=== PATIENT | female | born 1960 | race Caucasian/White ===

== ENCOUNTER → 2017-02-15 | Outpatient (REF) | payer OTHER | LOC: M SFHCWAGY 11:22 | PROVIDERS: ATTEND Nurse Practitioner Women's Health | DX: Z12.4 Encounter for screening for malignant neoplasm of cervix (principal); Z12.31 Encounter for screening mammogram for malignant neoplasm of breast ==

== ENCOUNTER → 2017-02-15 | Outpatient (CLI) | payer OTHER ==
--- NOTE | 2017-02-15 12:03 | REPMRS ---
Patient History The patient states she had a clinical breast exam in 01/2017. No known family history of cancer. Taking unspecified hormones for 6 years. Digital Woman Screen Mammo: February 15, 2017 - Exam #: [id number] Bilateral CC and MLO view(s) were taken. Technologist: Nicole Berkowitz, Technologist Prior study comparison: February 10, 2013, digital woman screen mammo performed at [facility]. February 10, 2013, digital bilateral screening mammo performed at [facility]. July 16, 2008, bilateral screening mammogram, performed at [facility]. FINDINGS: There are scattered fibroglandular densities. There has been no change in the appearance of the mammogram from the prior studies. There is a mild amount of scattered fibroglandular density which is fairly symmetric. There is no interval development of dominant mass, architectural distortion, or clustered microcalcification suggestive of malignancy. ASSESSMENT: BI-RADS/ACR category 1 mammogram. Negative. Recommendation Routine screening mammogram in 1 year (for women over age 40). This mammogram was interpreted with the aid of an FDA-approved computer-aided dectection system. Electronically Signed By: Roni Hercules MD 02/15/17 1399
== END ==
LOC: M WHC 11:08
PROVIDERS: ATTEND Nurse Practitioner Women's Health
DX: Z12.31 Encounter for screening mammogram for malignant neoplasm of breast (principal)

== ENCOUNTER → 2017-04-26 | Outpatient (CLI) | payer OTHER ==
--- NOTE | 2017-04-26 07:04 | REP ---
Clinical: Right upper quadrant abdominal pain. Technique: Irene scale ultrasound using curved array transducer. Findings: The liver demonstrates diffuse fatty infiltration without focal hepatic lesion. Visualized portions of the pancreas are unremarkable but limited due to interposed bowel gas. The gallbladder is normal without gallstones, wall thickening or pericholecystic fluid. No biliary ductal dilatation is appreciated, and the common bile duct measures 5.1 mm diameter. The right kidney is normal in reniform shape without hydronephrosis and measures 9.9 x 6.3 x 5.8 cm. Renovascular calcifications are suggested. No ascites. Visualized portions of the abdominal aorta normal. Impression: Essentially normal right upper quadrant ultrasound. Fatty infiltration to the liver. Renovascular calcifications suggested. Signed by Ronnie Bruno MD 04/26/2017 06:56 A
== END ==
LOC: M RAD 06:19
PROVIDERS: ATTEND Internal Medicine
DX: R10.9 Unspecified abdominal pain (principal)

== ENCOUNTER → 2018-04-24 | Outpatient (CLI) | payer OTHER | LOC: M WHC 14:53 | DX: Z12.31 Encounter for screening mammogram for malignant neoplasm of breast (principal) | CPT/HCPCS: 77067 ==

== ENCOUNTER → 2018-04-24 | Outpatient (REF) | payer OTHER | LOC: M SFHCWAGY 15:14 | DX: Z12.4 Encounter for screening for malignant neoplasm of cervix (principal) ==

== ENCOUNTER → 2018-08-15 | Outpatient (CLI) | payer BC | LOC: M PLARAD 08:51 | DX: R51 Headache (principal); Z53.9 Procedure and treatment not carried out, unspecified reason ==

== ENCOUNTER → 2019-01-07 | Outpatient (REF) | payer BC ==
[2019-01-07 18:55] LABS: RHEUMATOID FACTOR QUANT < 10.0 IU/ML (<15.0)
[2019-01-07 19:30] LABS: FOLATE 19.6 NG/ML
[2019-01-09 14:32] LABS: ANTINUCLEAR ANTIBODIES DIRECT Negative (Negative)
[2019-01-12 10:43] LABS: VITAMIN B12 LEVEL 443 PG/ML (232-1245)
== END ==
LOC: M LABNEURO 13:03
PROVIDERS: ATTEND Psychiatry & Neurology Neurology
DX: R51 Headache (principal); M54.2 Cervicalgia; M54.5 Low back pain

== ENCOUNTER → 2019-01-22 | Outpatient (REF) | payer BC ==
[2019-01-22 13:08] LABS: H PYLORI QUALITATIVE IgG NEGATIVE (NEGATIVE)
== END ==
LOC: M LAB REF 12:06
PROVIDERS: ATTEND Internal Medicine
DX: R10.9 Unspecified abdominal pain (principal)

== ENCOUNTER → 2019-09-29 | Outpatient (REF) | payer BC ==
[2019-09-29 13:53] LABS: AMYLASE 42 U/L (25-115); LIPASE 261 U/L (73-393)
[2019-09-30 09:41] LABS: H PYLORI QUALITATIVE IgG NEGATIVE (NEGATIVE)
== END ==
LOC: M LAB REF 12:39
PROVIDERS: ATTEND Internal Medicine
DX: R10.9 Unspecified abdominal pain (principal)

== ENCOUNTER → 2019-10-21 | Outpatient (CLI) | payer BC ==
--- NOTE | 2019-10-21 10:49 | REP ---
HIDA SCAN WITH GALLBLADDER EJECTION FRACTION: Following the administration of 6.6 millicuries technetium 99m mebrofenin, multiple images of the right upper quadrant are performed every 5 minutes for a period of 1 hour. Gallbladder is visualized at 15 minutes post injection. 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 At the 1-hour bird, 8 ounces of Ensure Enlive is ingested and further imaging is performed for 1 hour. Gallbladder ejection fraction is calculated to be 69%, which is normal. 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 Normal gallbladder ejection fraction of 69%. Electronically Signed by Yoan Irene MD 10/22/2019 11:17 A
== END ==
LOC: M RAD 07:48
PROVIDERS: ATTEND Internal Medicine
DX: R10.11 Right upper quadrant pain (principal)
CPT/HCPCS: 78227; A9537; J2805

== ENCOUNTER → 2019-10-28 | Outpatient (REF) | payer BC | LOC: M LAB REF 12:19 | PROVIDERS: ATTEND Internal Medicine | DX: J06.9 Acute upper respiratory infection, unspecified (principal) ==

== ENCOUNTER 2020-07-17 15:11 | Emergency (ER) | payer BC ==
[2020-07-17] MEDS ORDERED: ISOVUE-370 76% 100ML VIAL As Ordered ONE (15:42)
[2020-07-17] MEDS ORDERED: KETOROLAC 30 MG/ML 1ML VIAL As Ordered ONE (15:43)
[2020-07-17] MEDS ORDERED: KETOROLAC 30 MG/ML 1ML VIAL ONE (16:00)
[2020-07-17] MEDS ORDERED: CIPROFLOXACIN 500MG TABLET ONE (16:00)
[2020-07-17] MEDS ORDERED: metroNIDAZOLE (FLAGYL) 500MG TABLET ONE (16:00)
[2020-07-17] MEDS ORDERED: metroNIDAZOLE (FLAGYL) 500MG TABLET As Ordered ONE (17:17)
[2020-07-17] MEDS ORDERED: CIPROFLOXACIN 500MG TABLET As Ordered ONE (17:17)
[2020-07-20] MEDS ORDERED: ISOVUE-370 76% 100ML VIAL As Ordered ONE (19:15)
[2020-08-29 10:50] LABS: INR 0.85; PARTIAL THROMBOPLASTIN TIME 25.7 SECONDS (24.2-38.5); PROTHROMBIN TIME 11.9 SECONDS (12.5-14.3)
[2020-08-29 10:51] LABS: APPEARANCE, URINE MANUAL CLEAR (CLEAR); BILIRUBIN, URINE MANUAL NEGATIVE (NEGATIVE); BLOOD URINE MANUAL NEGATIVE (NEGATIVE); COLOR, URINE MANUAL YELLOW (YELLOW); GLUCOSE, URINE (UA) MANUAL NEGATIVE (NEGATIVE); KETONE, URINE MANUAL NEGATIVE (NEGATIVE); LEUKOCYTE ESTERASE, URINE MAN NEGATIVE (NEGATIVE); NITRITE, URINE MANUAL NEGATIVE (NEGATIVE); PROTEIN, URINE MANUAL NEGATIVE (NEGATIVE); SPECIFIC GRAVITY,URINE MANUAL 1.005 (1.002-1.035); UROBILINOGEN, URINE MANUAL NORMAL (NORMAL)
[2020-08-29 22:38] LABS: BASO # 0.1 10^3/uL (0.0-0.2); BASO % 0.4 % (0.0-1.0); EOS % 0.1 % (0.0-3.0); HEMATOCRIT 45.3 % (36.0-47.0); HEMOGLOBIN 15.4 g/dl (12.0-15.5); LYMPH # 2.4 10^3/uL (1.5-5.0); LYMPH % 17.2 % (24.0-44.0); MEAN CORPUSCULAR HEMOGLOBIN 31.4 pg (27.0-33.0); MEAN CORPUSCULAR VOLUME 92.4 fl (80.0-96.0); MONO % 6.9 % (0.0-5.0); NEUTROPHILS # 10.6 10^3/uL (1.5-8.5); PLATELET COUNT, AUTOMATED 305 10^3/uL (150-450); WHITE BLOOD COUNT 14.1 10^3/uL (4.0-10.0)
== END 2020-07-17 17:16 | disposition home or self-care (01) ==
LOC: M ED 15:11
DX: K52.9 Noninfective gastroenteritis and colitis, unspecified (principal); E03.9 Hypothyroidism, unspecified; E78.5 Hyperlipidemia, unspecified; M79.7 Fibromyalgia; F12.10 Cannabis abuse, uncomplicated; I67.1 Cerebral aneurysm, nonruptured; Z88.5 Allergy status to narcotic agent; Z88.6 Allergy status to analgesic agent; Z79.899 Other long term (current) drug therapy
CPT/HCPCS: 74177; 80053; 81002; 83690; 85025; 85610; 85730; 86850; 86900; 86901; 87086; 96374; 99284; J1885; Q9967

== ENCOUNTER 2020-07-20 15:48 | Emergency (ER) | payer BC ==
[~2020-07-20] VITALS: Ht 154.9 cm; Wt 74.1 kg
[2020-07-20] MEDS ORDERED: CIPR-249 PO (15:58)
[2020-07-20] MEDS ORDERED: FLAG500T PO (15:58)
[2020-07-20] MEDS ORDERED: LOSA100T8 PO (16:27)
[2020-07-20] MEDS ORDERED: PANT40TA29 PO (16:27)
[2020-07-20] MEDS ORDERED: DULO1CAP6 PO (16:27)
[2020-07-20] MEDS ORDERED: ATOR1TAB21 PO (16:27)
[2020-07-20] MEDS ORDERED: ONDA4TAB6 PO (16:27)
[2020-07-20] MEDS ORDERED: AMLO1TAB25 PO (16:27)
[2020-07-20] MEDS ORDERED: NS 1,000 ML IV ONE (17:00)
[2020-07-20] MEDS ORDERED: KETOROLAC 30 MG/ML 1ML VIAL IV ONE (17:00)
[2020-07-20 17:34] LABS: BILIRUBIN, URINE MANUAL NEGATIVE (NEGATIVE); GLUCOSE, URINE (UA) MANUAL NEGATIVE (NEGATIVE); KETONE, URINE MANUAL NEGATIVE (NEGATIVE); UROBILINOGEN, URINE MANUAL NORMAL (NORMAL)
[2020-07-20 17:46] LABS: MUCUS, URINE MOD AMOUNT (NEGATIVE); SQUAMOUS EPITHELIAL CELL URINE SMALL AMOUNT /hpf (SMALL AMT)
[2020-07-20 17:47] LABS: BACTERIA, URINE NONE SEEN; HYALINE CAST, URINE NONE SEEN /lpf (0-1)
[2020-07-20 17:58] LABS: BASO % 0.5 % (0.0-1.0); EOS % 0.2 % (0.0-3.0); HEMATOCRIT 40.3 % (36.0-47.0); HEMOGLOBIN 13.6 g/dl (12.0-15.5); LYMPH # 2.1 10^3/uL (1.5-5.0); LYMPH % 25.5 % (24.0-44.0); MEAN CORPUSCULAR HEMOGLOBIN 31.4 pg (27.0-33.0); MEAN CORPUSCULAR HGB CONC 33.7 g/dl (32.0-36.5); MEAN CORPUSCULAR VOLUME 93.1 fl (80.0-96.0); MONO # 0.8 10^3/uL (0.0-0.8); MONO % 9.8 % (0.0-5.0); NEUTROPHILS # 5.1 10^3/uL (1.5-8.5); NEUTROPHILS % 63.5 % (36.0-66.0); PLATELET COUNT, AUTOMATED 264 10^3/uL (150-450); RED BLOOD COUNT 4.33 10^6/uL (4.00-5.40)
[2020-07-20 18:49] LABS: ALBUMIN 4.3 GM/DL (3.2-5.2); ALT/SGPT 30 U/L (12-78); BILIRUBIN,DIRECT 0.1 MG/DL (0.0-0.2); BILIRUBIN,TOTAL 0.4 MG/DL (0.2-1.0); BLOOD UREA NITROGEN 18 MG/DL (7-18); CALCIUM LEVEL 9.2 MG/DL (8.5-10.1); CARBON DIOXIDE LEVEL 30 MEQ/L (21-32); CHLORIDE LEVEL 105 MEQ/L (98-107); CREATININE FOR GFR 0.95 MG/DL (0.55-1.30); GLOMERULAR FILTRATION RATE > 60.0 (>51); GLUCOSE, FASTING 94 MG/DL (70-100); LIPASE 218 U/L (73-393); POTASSIUM SERUM 3.7 MEQ/L (3.5-5.1); SODIUM LEVEL 139 MEQ/L (136-145); TOTAL PROTEIN 7.4 GM/DL (6.4-8.2)
--- NOTE | 2020-07-20 19:47 | REPVR ---
PROCEDURE INFORMATION: Exam: CT Abdomen And Pelvis With Contrast Exam date and time: 07/20/2020 7:30 PM Age: 59 years old Clinical indication: Abdominal pain; Localized; Lower; Additional info: Upper abd pain/blood in stool, prior CT 3 days ago TECHNIQUE: Imaging protocol: Computed tomography of the abdomen and pelvis with intravenous contrast. Radiation optimization: All CT scans at this facility use at least one of these dose optimization techniques: automated exposure control; mA and/or kV adjustment per patient size (includes targeted exams where dose is matched to clinical indication); or iterative reconstruction. Contrast material: ISOVUE 370; Contrast volume: 100 ml; Contrast route: INTRAVENOUS (IV); COMPARISON: BLADDER (LIMITED PELVIC) US 08/25/2014 2:41 PM FINDINGS: Lungs: No suspicious mass or airspace process in the visualized lung bases. Liver: Liver appears normal with no focal abnormality. Gallbladder and bile ducts: Gallbladder is present and shows no evidence of gallstone. Pancreas: Pancreas appears normal. No focal mass or peripancreatic inflammation. Spleen: Spleen appears homogeneous without focal mass. Adrenals: Adrenal glands are normal in appearance. Kidneys and ureters: Kidneys appear normal, with no stone, solid mass or hydronephrosis. Stomach and bowel: No evidence of small bowel obstruction. Large volume of stool is seen throughout the colon. No evidence of acute diverticulitis. Appendix: No evidence of mesenteric mass.Appendix is not visualized. Cecal tip suture line suggests prior appendix resection. Intraperitoneal space: No pneumoperitoneum. Vasculature: No aortic aneurysm. Main portal and splenic veins enhance normally. Lymph nodes: No enlarged lymph nodes. Bladder: Urinary bladder appears normal. Reproductive: Uterus appears myomatous. Bones/joints: Bony structures show no acute fracture or destructive process. Soft tissues: No effacement of normal fat planes in the ischiorectal fossa. IMPRESSION: 1. No acute or concerning focal abnormality to explain clinical symptoms. 2. Scattered colonic diverticula without active inflammation. 3. Prominent colonic stool suggesting perhaps an element of constipation without rectal fecal impaction. 4. Incidental myomatous uterus Knee Electronically signed by: Kris Melendez On 07/20/2020 19:47:08 PM
[2020-07-20 20:14] VITALS: BP 156/74
[2020-07-20] MEDS ORDERED: RA M1.74 PO (20:30)
[2020-07-20] MEDS ORDERED: MIRA3350 PO (20:30)
[2020-10-12] MEDS ORDERED: SYNT75TA PO (14:16)
== END 2020-07-20 20:43 | disposition home or self-care (01) ==
LOC: M ED 15:48
DX: D25.9 Leiomyoma of uterus, unspecified (principal); K57.30 Diverticulosis of large intestine without perforation or abscess without bleeding; K59.00 Constipation, unspecified; K92.1 Melena; I10 Essential (primary) hypertension; E78.5 Hyperlipidemia, unspecified; K21.9 Gastro-esophageal reflux disease without esophagitis; K52.9 Noninfective gastroenteritis and colitis, unspecified; Z88.6 Allergy status to analgesic agent; Z79.899 Other long term (current) drug therapy
CPT/HCPCS: 74177; 80048; 80076; 81000; 81015; 83690; 85025; 86850; 86900; 86901; 87086; 96361; 96374; 99284; J1885; Q9967

== ENCOUNTER → 2020-08-09 | Outpatient (CLI) | payer BC ==
[~2020-08-09] MED LIST: AMLO1TAB25 PO; ATOR1TAB21 PO; CIPR-249 PO; DULO1CAP6 PO; FLAG500T PO; LOSA100T8 PO; MIRA3350 PO; ONDA4TAB6 PO; PANT40TA29 PO; RA M1.74 PO; SYNT75TA PO
--- NOTE | 2020-08-30 14:29 | REP ---
PELVIC ULTRASOUND CLINICAL: Fibroid uterus. TECHNIQUE: Transabdominal pelvic ultrasound followed by transvaginal examination for a better evaluation of the endometrium and adnexa with color Doppler evaluation of the ovaries. FINDINGS: Heterogeneous anteverted uterus measures 5.7 x 3.0 x 3.9 cm. The endometrial complex measures 2 mm thickness. There is a complex hypodense lesion with posterior shadowing along the posterior aspect of the uterus suggesting degenerating fibroid. The right ovary is normal in appearance and vascularity measuring 1.7 x 1.0 x 2.0 cm (RI 0.55). The left ovary is not visualized on either transabdominal or transvaginal imaging. The bladder is normal and measures 8.3 x 5.6 x 7.9 cm. No ascites or adnexal mass lesion appreciated. IMPRESSION: * Degenerating posterior intramural fibroid measuring roughly 2.8 x 1.6 x 2.3 cm. * Normal right ovary. Left ovary not visualized. MTDD
== END ==
LOC: M WHC 15:23
PROVIDERS: ATTEND Nurse Practitioner Women's Health
DX: D25.9 Leiomyoma of uterus, unspecified (principal)

== ENCOUNTER → 2020-10-14 | Outpatient (CLI) | payer BC | LOC: M LABSMTC 10:19 | PROVIDERS: ATTEND Anesthesiology | DX: Z01.812 Encounter for preprocedural laboratory examination (principal); Z20.828 Contact with and (suspected) exposure to other viral communicable diseases ==

== ENCOUNTER 2020-10-19 06:54 | Day surgery (SDC) | payer BC ==
[~2020-10-19] VITALS: Ht 154.9 cm; Wt 72.6 kg
[2020-10-19] MEDS ORDERED: NS 1,000 ML IV ONE (07:00)
[2020-10-19] MEDS ORDERED: propofoL 200 MG/20 ML VIAL As Ordered ONE ×2 (07:10→08:50)
[2020-10-19] MEDS ORDERED: LIDOCAINE 2% 100MG/5ML SDV (FOR ANES.) As Ordered ONE (07:10)
--- NOTE | 2020-10-19 09:12 | ROOR ---
Patient Name: Mandi Conner Procedure Date: 10/19/2020 8:17 AM Date of : 1960 Age: 60 Room: [facility] Gender: Female Note Status: Finalized Procedure: Upper Endoscopy + Biopsies Indications: Heartburn, Exclusion of Ramsey's esophagus Providers: Gio Leach MD Referring MD: Elaine Ruiz DO Requesting Provider: Medicines: Monitored Anesthesia Care Complications: No immediate complications. Procedure: Pre-Anesthesia Assessment: - The heart rate, respiratory rate, oxygen saturations, blood pressure, adequacy of pulmonary ventilation, and response to care were monitored throughout the procedure. The Endoscope was introduced through the mouth, and advanced to the second part of duodenum. The upper GI endoscopy was accomplished without difficulty. The patient tolerated the procedure well. Findings: The Z-line was regular and was found 35 cm from the incisors. Multiple biopsies were obtained with cold forceps for evaluation to rule out Ramsey's Esophagus randomly at the gastroesophageal junction. A small hiatal hernia was present. No other significant abnormalities were identified in a careful examination of the stomach. Biopsies were taken with a cold forceps in the gastric antrum for Helicobacter pylori testing. The exam of the duodenum was otherwise normal. Impression: - Z-line regular, 35 cm from the incisors. - Small hiatal hernia. - Multiple biopsies were obtained at the gastroesophageal junction. - Biopsies were taken with a cold forceps for Helicobacter pylori testing. - The examination was otherwise normal. Recommendation: - Patient has a contact number available for emergencies. The signs and symptoms of potential delayed complications were discussed with the patient. Return to normal activities tomorrow. Written discharge instructions were provided to the patient. - High fiber diet. - Discharge patient to home. - Follow an antireflux regimen. - Continue present medications. - Await pathology results. - Telephone GI clinic for pathology results in 1 week. - Return to referring physician. - The findings and recommendations were discussed with the patient. Procedure Code(s): --- Professional --- 32571, Esophagogastroduodenoscopy, flexible, transoral; with biopsy, single or multiple Diagnosis Code(s): --- Professional --- K44.9, Diaphragmatic hernia without obstruction or gangrene R12, Heartburn CPT copyright 2019 [employer] [place] [employer]. All rights reserved. The codes documented in this report are preliminary and upon bradder review may be revised to meet current compliance requirements. Gio Leach MD Gio Leach MD 10/19/2020 9:12:15 AM Electronically signed by Gio Leach MD Number of Addenda: 0 Note Initiated On: 10/19/2020 8:17 AM Estimated Blood Loss: Estimated blood loss: none.
--- NOTE | 2020-10-19 09:17 | ROOR ---
Patient Name: Mandi Conner Procedure Date: 10/19/2020 8:21 AM Date of : 1960 Age: 60 Room: [facility] Gender: Female Note Status: Finalized Procedure: Total Colonoscopy to Cecum + Cold Snare Polypectomy + Hemoclips + Biopsies Indications: Clinically significant diarrhea of unexplained origin, Rectal bleeding Providers: Gio Leach MD Referring MD: Elaine Ruiz DO Requesting Provider: Medicines: Monitored Anesthesia Care Complications: No immediate complications. Procedure: Pre-Anesthesia Assessment: - The heart rate, respiratory rate, oxygen saturations, blood pressure, adequacy of pulmonary ventilation, and response to care were monitored throughout the procedure. The Colonoscope was introduced through the anus and advanced to the terminal ileum. The colonoscopy was performed without difficulty. The patient tolerated the procedure well. The quality of the bowel preparation was good. Findings: The perianal and digital rectal examinations were normal. Non-bleeding internal hemorrhoids were found during retroflexion. The hemorrhoids were small and Grade I (internal hemorrhoids that do not prolapse). Multiple small and large-mouthed diverticula were found in the recto-sigmoid colon, sigmoid colon and descending colon. A medium polyp was found in the cecum. The polyp was sessile. The polyp was removed with a cold snare. Resection and retrieval were complete. To prevent bleeding after the polypectomy, three hemostatic clips were successfully placed (MR conditional). There was no bleeding at the end of the procedure. The terminal ileum appeared normal. Biopsies were taken with a cold forceps for histology. The exam was otherwise without abnormality on direct and retroflexion views. Biopsies for histology were taken with a cold forceps from the ascending colon, transverse colon and descending colon for evaluation of microscopic colitis. The exam was otherwise without abnormality. Impression: - Non-bleeding internal hemorrhoids. - Diverticulosis in the recto-sigmoid colon, in the sigmoid colon and in the descending colon. - One medium polyp in the cecum, removed with a cold snare. Resected and retrieved. Clips (MR conditional) were placed. - The examined portion of the ileum was normal. Biopsied. - The examination was otherwise normal on direct and retroflexion views. - The examination was otherwise normal. - Biopsies were taken with a cold forceps from the ascending colon, transverse colon and descending colon for evaluation of microscopic colitis. - The exam was otherwise normal to the cecum. Recommendation: - Patient has a contact number available for emergencies. The signs and symptoms of potential delayed complications were discussed with the patient. Return to normal activities tomorrow. Written discharge instructions were provided to the patient. - High fiber diet. - Discharge patient to home. - Continue present medications. - Await pathology results. - Telephone GI clinic for pathology results in 1 week. - Repeat colonoscopy in 5 years for surveillance based on pathology results. - Return to referring physician. - The findings and recommendations were discussed with the patient. Procedure Code(s): --- Professional --- 73424, Colonoscopy, flexible; with removal of tumor(s), polyp(s), or other lesion(s) by snare technique 87863, 59, Colonoscopy, flexible; with biopsy, single or multiple Diagnosis Code(s): --- Professional --- K64.0, First degree hemorrhoids K63.5, Polyp of colon R19.7, Diarrhea, unspecified K62.5, Hemorrhage of anus and rectum K57.30, Diverticulosis of large intestine without perforation or abscess without bleeding CPT copyright 2019 [employer]. All rights reserved. The codes documented in this report are preliminary and upon easter bunny review may be revised to meet current compliance requirements. Gio Leach MD Gio Leach MD 10/19/2020 9:16:43 AM Electronically signed by Gio Leach MD Number of Addenda: 0 Note Initiated On: 10/19/2020 8:21 AM Estimated Blood Loss: Estimated blood loss: none.
[2020-10-19 09:30] VITALS: BP 166/83
== END 2020-10-19 09:45 | disposition home or self-care (01) ==
LOC: M OPP 06:54
PROVIDERS: ATTEND Internal Medicine Gastroenterology
DX: K63.5 Polyp of colon (principal); K57.30 Diverticulosis of large intestine without perforation or abscess without bleeding; K64.0 First degree hemorrhoids; R19.7 Diarrhea, unspecified; K62.5 Hemorrhage of anus and rectum; K44.9 Diaphragmatic hernia without obstruction or gangrene; K29.50 Unspecified chronic gastritis without bleeding; K21.9 Gastro-esophageal reflux disease without esophagitis; Z79.899 Other long term (current) drug therapy; Z88.5 Allergy status to narcotic agent; Z83.71 Family history of colonic polyps

== ENCOUNTER → 2021-01-31 | Outpatient (REF) | payer BC ==
[2021-01-31 11:08] LABS: ALBUMIN 4.2 GM/DL (3.2-5.2); ALT/SGPT 31 U/L (12-78); BILIRUBIN,TOTAL 0.6 MG/DL (0.2-1.0); BLOOD UREA NITROGEN 14 MG/DL (7-18); CALCIUM LEVEL 8.7 MG/DL (8.8-10.2); CARBON DIOXIDE LEVEL 27 MEQ/L (21-32); CHLORIDE LEVEL 107 MEQ/L (98-107); CHOLESTEROL LEVEL 195 MG/DL (<200); CHOLESTEROL RISK RATIO 3.145 (<5); GLOMERULAR FILTRATION RATE > 60.0 (>45); GLUCOSE, FASTING 95 MG/DL (70-100); HDL CHOLESTEROL 62 MG/DL (>40); LDL CHOLESTEROL 106 MG/DL (<100); NON-HDL-C 133 MG/DL; POTASSIUM SERUM 4.1 MEQ/L (3.5-5.1); SODIUM LEVEL 141 MEQ/L (136-145); TOTAL PROTEIN 6.9 GM/DL (6.4-8.2); TRIGLYCERIDES LEVEL 136 MG/DL (<150)
== END ==
LOC: M PLALAB 08:03
PROVIDERS: ATTEND Family Medicine
DX: I10 Essential (primary) hypertension (principal); E78.2 Mixed hyperlipidemia; E03.9 Hypothyroidism, unspecified

== ENCOUNTER → 2021-02-07 | Outpatient (CLI) | payer BC ==
--- NOTE | 2021-02-07 15:44 | REPMRS ---
Patient History The patient states she has not had a clinical breast exam in over a year. No known family history of cancer. Took unspecified hormones for 6 years. Digital Woman Screen Mammo: February 07, 2021 - Exam #: [id number] Bilateral CC and MLO view(s) were taken. Technologist: Kailey Aleman, Technologist Prior study comparison: April 24, 2018, digital woman screen mammo performed at [facility]. February 15, 2017, digital woman screen mammo performed at [facility]. February 10, 2013, digital bilateral screening mammo performed at [facility]. FINDINGS: There are scattered fibroglandular densities. The Volpara volumetric breast density category is:B. There has been no change in the appearance of the mammogram from the prior studies. There is a mild amount of scattered fibroglandular density which is fairly symmetric. There is no interval development of dominant mass, architectural distortion, or grouped microcalcification suggestive of malignancy. 3-D tomosynthesis shows no additional findings. Assessment: BI-RADS/ACR category 1 mammogram. Negative Mammogram. Recommendation Routine screening mammogram of both breasts in 1 year (for women over age 40). This patient's [facility] Lifetime Breast Cancer Risk is estimated at 7.8 %. This mammogram was interpreted with the aid of an FDA-approved computer-aided dectection system. Electronically Signed By: Roni Hercules MD 02/07/21 1307
== END ==
LOC: M WHC 14:48
PROVIDERS: ATTEND Family Medicine
DX: Z12.31 Encounter for screening mammogram for malignant neoplasm of breast (principal)

== ENCOUNTER → 2021-09-13 | Outpatient (CLI) | payer BC ==
[2021-09-13 18:22] LABS: CALCIUM LEVEL 8.8 MG/DL (8.8-10.2); CREATININE FOR GFR 1.03 MG/DL (0.55-1.30); GLOMERULAR FILTRATION RATE 58.2 (>45); POTASSIUM SERUM 3.7 MEQ/L (3.5-5.1)
== END ==
LOC: M PLALAB 14:56
PROVIDERS: ATTEND Family Medicine
DX: I10 Essential (primary) hypertension (principal)

== ENCOUNTER → 2021-09-28 | Outpatient (CLI) | payer BC ==
[2021-09-28 15:36] LABS: BLOOD UREA NITROGEN 15 MG/DL (7-18); CALCIUM LEVEL 9.3 MG/DL (8.8-10.2); CARBON DIOXIDE LEVEL 29 MEQ/L (21-32); CHLORIDE LEVEL 107 MEQ/L (98-107); CREATININE FOR GFR 0.94 MG/DL (0.55-1.30); GLOMERULAR FILTRATION RATE > 60.0 (>45); GLUCOSE, FASTING 125 MG/DL (70-100); POTASSIUM SERUM 4.2 MEQ/L (3.5-5.1); SODIUM LEVEL 141 MEQ/L (136-145)
== END ==
LOC: M PLALAB 12:17
PROVIDERS: ATTEND Family Medicine
DX: R94.4 Abnormal results of kidney function studies (principal)

== ENCOUNTER → 2022-03-21 | Outpatient (CLI) | payer BC ==
[2022-03-21 11:32] LABS: ALBUMIN 4.2 GM/DL (3.2-5.2); ALT/SGPT 41 U/L (12-78); BILIRUBIN,TOTAL 0.7 MG/DL (0.2-1.0); BLOOD UREA NITROGEN 15 MG/DL (7-18); CALCIUM LEVEL 9.3 MG/DL (8.8-10.2); CARBON DIOXIDE LEVEL 30 MEQ/L (21-32); CHLORIDE LEVEL 107 MEQ/L (98-107); CHOLESTEROL LEVEL 178 MG/DL (<200); CHOLESTEROL RISK RATIO 2.966 (<5); CREATININE FOR GFR 0.99 MG/DL (0.55-1.30); GLOMERULAR FILTRATION RATE > 60.0 (>45); GLUCOSE, FASTING 100 MG/DL (70-100); HDL CHOLESTEROL 60 MG/DL (>40); LDL CHOLESTEROL 93 MG/DL (<100); NON-HDL-C 118 MG/DL; POTASSIUM SERUM 4.2 MEQ/L (3.5-5.1); SODIUM LEVEL 139 MEQ/L (136-145); TOTAL PROTEIN 7.1 GM/DL (6.4-8.2); TRIGLYCERIDES LEVEL 125 MG/DL (<150)
== END ==
LOC: M PLALAB 08:08
PROVIDERS: ATTEND Family Medicine
DX: E78.2 Mixed hyperlipidemia (principal); I10 Essential (primary) hypertension; E03.9 Hypothyroidism, unspecified

== ENCOUNTER → 2022-05-04 | Outpatient (CLI) | payer BC | LOC: M PLALAB 07:38 | PROVIDERS: ATTEND Family Medicine | DX: E03.9 Hypothyroidism, unspecified (principal) ==

== ENCOUNTER → 2022-06-19 | Outpatient (CLI) | payer BC | LOC: M RAD 14:08 | PROVIDERS: ATTEND Psychiatry & Neurology Neurology | DX: F07.81 Postconcussional syndrome (principal) ==

== ENCOUNTER → 2022-06-20 | Outpatient (CLI) | payer BC | LOC: M RAD 07:25 | PROVIDERS: ATTEND Physician Assistant | DX: K21.9 Gastro-esophageal reflux disease without esophagitis (principal); K76.0 Fatty (change of) liver, not elsewhere classified ==

== ENCOUNTER → 2023-01-16 | Outpatient (CLI) | payer BC ==
[2023-01-16 15:29] LABS: BASO # 0.1 10^3/uL (0.0-0.2); BASO % 0.6 % (0.0-1.0); EOS % 0.1 % (0.0-3.0); HEMATOCRIT 43.3 % (36.0-47.0); HEMOGLOBIN 14.4 g/dl (12.0-15.5); LYMPH # 1.8 10^3/uL (1.5-5.0); LYMPH % 18.8 % (24.0-44.0); MEAN CORPUSCULAR HEMOGLOBIN 30.8 pg (27.0-33.0); MEAN CORPUSCULAR HGB CONC 33.3 g/dl (32.0-36.5); MEAN CORPUSCULAR VOLUME 92.7 fl (80.0-96.0); MONO # 0.9 10^3/uL (0.0-0.8); MONO % 9.3 % (2.0-8.0); NEUTROPHILS # 6.7 10^3/uL (1.5-8.5); NEUTROPHILS % 70.8 % (36.0-66.0); PLATELET COUNT, AUTOMATED 245 10^3/uL (150-450); RED BLOOD COUNT 4.67 10^6/uL (4.00-5.40); WHITE BLOOD COUNT 9.5 10^3/uL (4.0-10.0)
[2023-01-16 15:31] LABS: C REACTIVE PROTEIN QUANTITATIV < 0.40 MG/DL (<1.0)
[2023-01-16 15:43] LABS: ERYTHROCYTE SEDIMENTATION RATE 3 mm/hr (0-30)
[2023-01-16 15:51] LABS: ALKALINE PHOSPHATASE 90 U/L (46-116); ALT/SGPT 27 U/L (7.0-40); AST/SGOT 26 U/L (<34); BILIRUBIN,TOTAL 0.5 MG/DL (0.3-1.2); BLOOD UREA NITROGEN 14 MG/DL (9-23); CALCIUM LEVEL 9.7 MG/DL (8.3-10.6); CARBON DIOXIDE LEVEL 32 MMOL/L (20-31); CHLORIDE LEVEL 102 MMOL/L (98-107); CHOLESTEROL LEVEL 180 MG/DL (<200); CREATININE FOR GFR 0.94 MG/DL (0.55-1.30); GLOMERULAR FILTRATION RATE > 60.0 (>45); GLUCOSE, FASTING 94 MG/DL (74-106); HDL CHOLESTEROL 66.2 MG/DL (>40); POTASSIUM SERUM 4.1 MMOL/L (3.5-5.1); SODIUM LEVEL 139 MMOL/L (136-145)
[2023-01-16 15:52] LABS: ALBUMIN 4.3 G/DL (3.2-5.2); CHOLESTEROL RISK RATIO 2.71 (<5); FREE T4 0.91 NG/DL (0.89-1.76); NON-HDL-C 114 MG/DL; THYROID STIMULATING HORMONE 6.551 uIU/ML (0.55-4.78)
[2023-01-16 21:34] LABS: LDL CHOLESTEROL 79.6 MG/DL (<100); TRIGLYCERIDES LEVEL 171 MG/DL (<150)
== END ==
LOC: M PLALAB 13:58
PROVIDERS: ATTEND Physician Assistant
DX: M79.661 Pain in right lower leg (principal); M62.89 Other specified disorders of muscle; E03.9 Hypothyroidism, unspecified; E78.2 Mixed hyperlipidemia

== ENCOUNTER → 2023-01-17 | Outpatient (CLI) | payer BC | LOC: M WHC 12:18 | PROVIDERS: ATTEND Physician Assistant | DX: M79.661 Pain in right lower leg (principal); M62.89 Other specified disorders of muscle ==

== ENCOUNTER → 2023-04-09 | Outpatient (REF) | payer BC | LOC: M SFHCWAGY 17:53 | PROVIDERS: ATTEND Nurse Practitioner Family | DX: N73.9 Female pelvic inflammatory disease, unspecified (principal); Z12.4 Encounter for screening for malignant neoplasm of cervix | CPT/HCPCS: 87070; 87624; G0123 ==

== ENCOUNTER → 2023-04-09 | Outpatient (CLI) | payer BC | LOC: M WHC 11:05 | PROVIDERS: ATTEND Nurse Practitioner Family | DX: Z12.31 Encounter for screening mammogram for malignant neoplasm of breast (principal) ==

== ENCOUNTER → 2023-05-14 | Outpatient (CLI) | payer BC ==
[2023-05-14 10:45] LABS: FREE T4 1.27 NG/DL (0.89-1.76); THYROID STIMULATING HORMONE 0.171 uIU/ML (0.55-4.78)
== END ==
LOC: M PLALAB 08:02
PROVIDERS: ATTEND Physician Assistant
DX: E03.9 Hypothyroidism, unspecified (principal)

== ENCOUNTER → 2023-10-28 | Outpatient (CLI) | payer BC | LOC: M WHC 10:58 | PROVIDERS: ATTEND Physician Assistant | DX: E41 Nutritional marasmus (principal) ==

== ENCOUNTER → 2024-01-26 | Outpatient (REF) | payer BC | LOC: M LAB REF 17:16 | PROVIDERS: ATTEND Physician Assistant | DX: N39.0 Urinary tract infection, site not specified (principal); B96.20 Unspecified Escherichia coli [E. coli] as the cause of diseases classified elsewhere ==

== ENCOUNTER → 2024-03-11 | Outpatient (REF) | payer BC ==
[2024-03-11 14:11] LABS: Trichomonas vaginalis (AMP) NOT DETECTED (NEGATIVE)
[2024-03-11 14:35] LABS: GC DNA AMPLIFICATION POSITIVE (NEGATIVE)
[2024-03-11 14:48] LABS: HEPATITIS C VIRUS ABY INDEX < 0.02 INDEX (<0.8)
== END ==
LOC: M LAB REF 11:50
PROVIDERS: ATTEND Nurse Practitioner Family
DX: R30.0 Dysuria (principal); Z11.3 Encounter for screening for infections with a predominantly sexual mode of transmission

== ENCOUNTER → 2024-04-08 | Outpatient (CLI) | payer BC ==
[2024-04-08 12:06] LABS: BASO # 0.1 10^3/uL (0.0-0.2); EOS % 0.2 % (0.0-3.0); HEMATOCRIT 42.9 % (36.0-47.0); HEMOGLOBIN 13.9 g/dl (12.0-15.5); LYMPH # 1.4 10^3/uL (1.5-5.0); LYMPH % 23.4 % (24.0-44.0); MEAN CORPUSCULAR HEMOGLOBIN 30.5 pg (27.0-33.0); MEAN CORPUSCULAR HGB CONC 32.4 g/dl (32.0-36.5); MEAN CORPUSCULAR VOLUME 94.1 fl (80.0-96.0); MONO # 0.6 10^3/uL (0.0-0.8); MONO % 9.3 % (2.0-8.0); NEUTROPHILS # 4.1 10^3/uL (1.5-8.5); NEUTROPHILS % 65.8 % (36.0-66.0); PLATELET COUNT, AUTOMATED 202 10^3/uL (150-450); RED BLOOD COUNT 4.56 10^6/uL (4.00-5.40); WHITE BLOOD COUNT 6.2 10^3/uL (4.0-10.0)
[2024-04-08 12:08] LABS: ALBUMIN 4.1 G/DL (3.2-5.2); ALKALINE PHOSPHATASE 80 U/L (46-116); ALT/SGPT 22 U/L (7.0-40); AST/SGOT 17 U/L (<34); BILIRUBIN,TOTAL 0.6 MG/DL (0.3-1.2); BLOOD UREA NITROGEN 17 MG/DL (9-23); CALCIUM LEVEL 9.4 MG/DL (8.3-10.6); CARBON DIOXIDE LEVEL 30 MMOL/L (20-31); CHLORIDE LEVEL 107 MMOL/L (98-107); CHOLESTEROL LEVEL 194 MG/DL (<200); CHOLESTEROL RISK RATIO 2.64 (<5); CREATININE FOR GFR 0.85 MG/DL (0.55-1.30); GLOMERULAR FILTRATION RATE > 60.0 (>45); GLUCOSE, FASTING 91 MG/DL (74-106); HDL CHOLESTEROL 73.4 MG/DL (>40); LDL CHOLESTEROL 102.4 MG/DL (<100); NON-HDL-C 120.6 MG/DL; POTASSIUM SERUM 4.3 MMOL/L (3.5-5.1); PTH INTACT 48.5 PG/ML (18.5-88.0); SODIUM LEVEL 142 MMOL/L (136-145); TOTAL PROTEIN 6.5 G/DL (5.7-8.2); TRIGLYCERIDES LEVEL 91 MG/DL (<150)
[2024-04-08 12:10] LABS: THYROID STIMULATING HORMONE 4.972 uIU/ML (0.55-4.78)
[2024-04-08 12:11] LABS: FREE T4 0.85 NG/DL (0.89-1.76)
== END ==
LOC: M PLALAB 08:07
PROVIDERS: ATTEND Physician Assistant
DX: Z13.1 Encounter for screening for diabetes mellitus (principal); E04.1 Nontoxic single thyroid nodule; I10 Essential (primary) hypertension; E78.2 Mixed hyperlipidemia

== ENCOUNTER → 2024-04-20 | Outpatient (REF) | payer BC | LOC: M LAB REF 10:24 | PROVIDERS: ATTEND Student in an Organized Health Care Education/Training Program | DX: R30.0 Dysuria (principal) ==

== ENCOUNTER → 2024-06-10 | Outpatient (CLI) | payer BC ==
[~2024-06-10] MED LIST changes: +ONDA-282 PO; -ONDA4TAB6 PO
== END ==
LOC: M WHC 08:54
PROVIDERS: ATTEND Physician Assistant
DX: R14.0 Abdominal distension (gaseous) (principal); D25.9 Leiomyoma of uterus, unspecified

== ENCOUNTER → 2024-06-29 | Outpatient (REF) | payer BC ==
[2024-06-29 15:16] LABS: APPEARANCE, URINE CLEAR (CLEAR); BACTERIA, URINE AUTO NEGATIVE (NEGATIVE); BILIRUBIN, URINE AUTO NEGATIVE (NEGATIVE); BLOOD, URINE BLOOD NEGATIVE (NEGATIVE); COLOR, URINE STRAW (YELLOW); GLUCOSE, URINE (UA) AUTO NEGATIVE (NEGATIVE); KETONE, URINE AUTO NEGATIVE (NEGATIVE); LEUKOCYTE ESTERASE, URINE AUTO NEGATIVE (NEGATIVE); NITRITE, URINE AUTO NEGATIVE (NEGATIVE); PROTEIN, URINE AUTO NEGATIVE (NEGATIVE); RBC, URINE AUTO 0 /HPF (0-3); SPECIFIC GRAVITY URINE AUTO 1.008 (1.002-1.035); SQUAMOUS EPITHELIAL CELL UR AU 0 /HPF (0-6); UROBILINOGEN, URINE AUTO 0.2 mg/dL (0.0-2.0); WBC, URINE AUTO 0 /HPF (0-3)
== END ==
LOC: M SMT 14:52
PROVIDERS: ATTEND Specialist
DX: N39.0 Urinary tract infection, site not specified (principal)

== ENCOUNTER → 2024-07-17 | Outpatient (CLI) | payer BC ==
[2024-07-17 14:46] LABS: BASO % 0.6 % (0.0-1.0); HEMATOCRIT 41.4 % (36.0-47.0); HEMOGLOBIN 13.8 g/dl (12.0-15.5); LYMPH # 1.3 10^3/uL (1.5-5.0); LYMPH % 17.8 % (24.0-44.0); MEAN CORPUSCULAR HEMOGLOBIN 31.4 pg (27.0-33.0); MEAN CORPUSCULAR HGB CONC 33.3 g/dl (32.0-36.5); MEAN CORPUSCULAR VOLUME 94.1 fl (80.0-96.0); MONO # 0.7 10^3/uL (0.0-0.8); MONO % 9.3 % (2.0-8.0); NEUTROPHILS # 5.1 10^3/uL (1.5-8.5); NEUTROPHILS % 71.6 % (36.0-66.0); PLATELET COUNT, AUTOMATED 233 10^3/uL (150-450); WHITE BLOOD COUNT 7.1 10^3/uL (4.0-10.0)
[2024-07-17 15:06] LABS: ERYTHROCYTE SEDIMENTATION RATE 3 mm/hr (0-30)
[2024-07-17 15:14] LABS: LIPASE 46 U/L (12-53)
[2024-07-17 15:15] LABS: C REACTIVE PROTEIN QUANTITATIV < 0.40 MG/DL (<1.0)
[2024-07-17 15:16] LABS: ALBUMIN 4.1 G/DL (3.2-5.2); ALKALINE PHOSPHATASE 76 U/L (46-116); ALT/SGPT 22 U/L (7.0-40); AST/SGOT 15 U/L (<34); BILIRUBIN,TOTAL 0.6 MG/DL (0.3-1.2); BLOOD UREA NITROGEN 13 MG/DL (9-23); CARBON DIOXIDE LEVEL 31 MMOL/L (20-31); CHLORIDE LEVEL 106 MMOL/L (98-107); CREATININE FOR GFR 0.83 MG/DL (0.55-1.30); GLOMERULAR FILTRATION RATE > 60.0 (>45); GLUCOSE, FASTING 89 MG/DL (74-106); POTASSIUM SERUM 4.4 MMOL/L (3.5-5.1); SODIUM LEVEL 139 MMOL/L (136-145); TOTAL PROTEIN 6.7 G/DL (5.7-8.2)
== END ==
LOC: M PLALAB 10:18
PROVIDERS: ATTEND Physician Assistant
DX: K76.0 Fatty (change of) liver, not elsewhere classified (principal); K83.8 Other specified diseases of biliary tract; R14.0 Abdominal distension (gaseous)

== ENCOUNTER → 2024-08-13 | Outpatient (REF) | payer OTHER ==
[2024-08-21 21:22] LABS: CALPROTECTIN STOOL 27 mcg/g (<50)
[2024-08-21 23:22] LABS: PANCREATIC ELASTASE STOOL > 500 mcg/g (>200)
== END ==
LOC: M SFHCPLAZ 10:33
PROVIDERS: ATTEND Physician Assistant
DX: K83.8 Other specified diseases of biliary tract (principal); R14.0 Abdominal distension (gaseous)

== ENCOUNTER → 2025-08-27 | Outpatient (CLI) | payer BC ==
[2025-08-27 15:20] LABS: ALT/SGPT 25.0 U/L (7.0-40); AST/SGOT 25.0 U/L (<34); CALCIUM LEVEL 9.3 MG/DL (8.3-10.6); CARBON DIOXIDE LEVEL 28.0 MMOL/L (20-31); CHLORIDE LEVEL 104.0 MMOL/L (98-107); CREATININE FOR GFR 0.83 MG/DL (0.55-1.30); GLOMERULAR FILTRATION RATE 78.7 (>45); POTASSIUM SERUM 4.6 MMOL/L (3.5-5.1); SODIUM LEVEL 140.0 MMOL/L (136-145)
[2025-08-27 15:21] LABS: FREE T4 1.3 NG/DL (0.89-1.76)
== END ==
LOC: M PLALAB 08:07
DX: I67.1 Cerebral aneurysm, nonruptured (principal); E03.9 Hypothyroidism, unspecified

== ENCOUNTER → 2025-09-04 | Outpatient (RCR) | LOC: M EMPSKH 08-17 15:07 | PROVIDERS: ATTEND Family Medicine | DX: Z20.828 Contact with and (suspected) exposure to other viral communicable diseases (principal) ==

== ENCOUNTER → 2025-09-07 | Outpatient (CLI) | payer MEDICARE ==
[~2025-09-07] MED LIST changes: +ISOVUE-370 76% 100 ML VIAL ONE
== END ==
LOC: M PLAIMG 06:59
DX: I67.1 Cerebral aneurysm, nonruptured (principal); G93.89 Other specified disorders of brain
CPT/HCPCS: 70496; Q9967